=== PATIENT | male | born 1990 | race African-American/Black ===

== ENCOUNTER 2016-10-10 09:47 | Emergency (ER) | payer MEDICAID ==
[~2016-10-10] VITALS: Ht 175.3 cm; Wt 75.0 kg
[2016-10-10 09:48] VITALS: BP 140/75; PULSE 97; RESP 16; TEMP 99.1; O2SAT 98
--- NOTE | 2016-10-10 10:06 | PD ---
HPI Chief Complaint: Cold / Flu Symptoms Time Seen by Provider: 09:51 Travel History International Travel<30 days: No Contact w/Intl Traveler<30days: No Traveled to known affect area: No History of Present Illness HPI This is a 26 year old male who presents to the emergency department with shortness of breath and chest pain, constant, squeezing, 9/10, constant. Pt. reports that his pain was so bad that it woke him up from his sleep. Pt. was seen in the emergency department in [facility] one month ago with similar symptoms and he received IV fluids and felt better. Pt. denies any medical problems but his mother and grandmother both had heart attacks. He does smoke cigarettes and marijuana and denies any cocaine use. He denies any history of blood clots or having been on long trips. PFSH Past Medical History Hx Anticoagulant Therapy: No Cardiovascular Problems: No Chemotherapy: No Cerebrovascular Accident: No Diabetes: No Diminished Hearing: No Respiratory: No Past Surgical History Hysterectomy: No Social History Alcohol Use: No Tobacco Use: Yes Substance Use: Yes Allergies-Medications (Allergen,Severity, Reaction): Coded Allergies: No Known Allergies (Verified , 10/10/16) Reported Meds & Prescriptions Reported Meds & Active Scripts Active No Active Prescriptions or Reported Medications Review of Systems Except as stated in HPI: all other systems reviewed are Neg Physical Exam Narrative GENERAL:Well appearing, no acute distress SKIN: Focused skin assessment warm and dry. HEAD: Atraumatic. Normocephalic. EYES: Pupils equal and round. No injection or drainage. ENT: Moist mucous membranes NECK: Trachea midline. CARDIOVASCULAR: Regular rate and rhythm. 3/6 systolic ejection murmur RESPIRATORY: Clear to auscultation. Breath sounds equal bilaterally. GASTROINTESTINAL: Abdomen soft, non-tender, nondistended. MUSCULOSKELETAL: No obvious deformities. NEUROLOGICAL: Awake and alert. No obvious cranial nerve deficits. Moving all extremities. PSYCHIATRIC: Appropriate mood and affect; insight and judgment normal. Data Data Last Documented VS Vital Signs Date Time Temp Pulse Resp B/P Pulse Ox O2 Delivery O2 Flow Rate FiO2 10/10/16 09:58 98 10/10/16 09:48 99.1 97 16 140/75 Orders Electrocardiogram (10/10/16 ) Complete Blood Count With Diff (10/10/16 10:18) Comprehensive Metabolic Panel (10/10/16 10:18) Troponin I (10/10/16 10:18) Sodium Chlor 0.9% 1000 Ml Inj (Ns 1000 M (10/10/16 10:30) Chest, Single Ap (10/10/16 ) Labs Laboratory Tests Test 10/10/16 10:29 White Blood Count 9.2 TH/MM3 Red Blood Count 4.48 MIL/MM3 Hemoglobin 13.3 GM/DL Hematocrit 40.6 % Mean Corpuscular Volume 90.7 FL Mean Corpuscular Hemoglobin 29.8 PG Mean Corpuscular Hemoglobin 32.8 % Concent Red Cell Distribution Width 12.4 % Platelet Count 253 TH/MM3 Mean Platelet Volume 8.7 FL Neutrophils (%) (Auto) 73.3 % Lymphocytes (%) (Auto) 18.6 % Monocytes (%) (Auto) 7.5 % Eosinophils (%) (Auto) 0.0 % Basophils (%) (Auto) 0.6 % Neutrophils # (Auto) 6.8 TH/MM3 Lymphocytes # (Auto) 1.7 TH/MM3 Monocytes # (Auto) 0.7 TH/MM3 Eosinophils # (Auto) 0.0 TH/MM3 Basophils # (Auto) 0.1 TH/MM3 CBC Comment DIFF FINAL Differential Comment Sodium Level 141 MEQ/L Potassium Level 3.3 MEQ/L Chloride Level 106 MEQ/L Carbon Dioxide Level 28.5 MEQ/L Anion Gap 7 MEQ/L Blood Urea Nitrogen 10 MG/DL Creatinine 1.09 MG/DL Estimat Glomerular Filtration 99 ML/MIN Rate Random Glucose 89 MG/DL Calcium Level 9.0 MG/DL Total Bilirubin 0.9 MG/DL Aspartate Amino Transf 14 U/L (AST/SGOT) Alanine Aminotransferase 8 U/L (ALT/SGPT) Alkaline Phosphatase 73 U/L Troponin I LESS THAN 0.02 NG/ML Total Protein 7.5 GM/DL Albumin 4.0 GM/DL [facility] Medical Decision Making Medical Screen Exam Complete: Yes Emergency Medical Condition: Yes Interpretation(s) afebrile, mild tachycardia no leukocytosis mild hypokalemia troponin normal cxr reassuring ekg: nsr, lvh with high qrs amplitude at V4-V6 Differential Diagnosis Pneumomediastinum, anxiety, costochondritis, hypertrophic cardiomyopathy, acute coronary syndrome, myocardial bridging Narrative Course This is a 26-year-old male who presents to the emergency department with chest discomfort that's been going on since morning. He did smoke marijuana this morning. Patient has a family history of heart disease. EKG demonstrates left ventricular hypertrophy. He was placed on a monitor and an IV was established. Labs are reassuring with a normal troponin. Chest x-ray is unremarkable. I do appreciate a systolic murmur on the patient's physical exam. Given this and evidence of LVH on his EKG I think it's reasonable for him to follow up with a java developer consultant as an outpatient, possibly for an echo. A mandatory referral will be placed. Diagnosis Primary Impression: Chest pain Qualified Code: R07.9 - Chest pain, unspecified type Patient Instructions: General Instructions Additional Instructions: If you develop severe chest pain, shortness of breath, sweating, lightheadedness , dizziness or difficulty breathing return to the emergency department immediately. It is very important that you follow-up with a java developer consultant as you have a heart murmur in your EKG is abnormal. Med/Other Pt SpecificInfo: No Change to Meds Scripts No Active Prescriptions or Reported Meds Disposition: 01 DISCHARGE HOME Condition: Stable Carlota Carvajal MD October 10, 2016 10:06
[2016-10-10] MEDS ORDERED: SODIUM CHLOR 0.9% 1000 ML INJ 1,000 ML IV ONE (10:30)
--- NOTE | 2016-10-10 10:41 | RADRPT ---
EXAM DATE/TIME: 10/10/2016 10:27 [facility] COMPARISON: CHEST SINGLE AP, February 01, 2016, 18:25. INDICATIONS : Chest pain and tightness. MEDICAL HISTORY : None. SURGICAL HISTORY : None. ENCOUNTER: Initial ACUITY: 1 day PAIN SCORE: 8/10 LOCATION: Bilateral chest FINDINGS: A single view of the chest demonstrates the lungs to be symmetrically aerated without evidence of mas s, infiltrate or effusion. The cardiomediastinal contours are unremarkable. Osseous structures are intact. CONCLUSION: No acute disease. Carlos Nur MD on October 10, 2016 at 10:37 Board Certified Radiologist. This report was verified electronically.
[2016-10-10 10:57] LABS: AUTOMATED NEUTROPHIL # 6.8 TH/MM3 (1.8-7.7); BASOPHIL # 0.1 TH/MM3 (0-0.2); BASOPHIL % 0.6 % (0.0-2.0); HEMATOCRIT 40.6 % (39.0-51.0); HEMO FLAGS DIFF FINAL; LYMPH % 18.6 % (9.0-44.0); LYMPHOCYTE # 1.7 TH/MM3 (1.0-4.8); MEAN CELL VOLUME 90.7 FL (80.0-100.0); MEAN CORPUSCULAR HEMOGLOBIN 29.8 PG (27.0-34.0); MEAN CORPUSCULAR HGB CONC 32.8 % (32.0-36.0); MONO % 7.5 % (0.0-8.0); NEUT % 73.3 % (16.0-70.0); PLATELET COUNT 253 TH/MM3 (150-450); RED BLOOD COUNT 4.48 MIL/MM3 (4.50-5.90); RED CELL DISTRIBUTION WIDTH 12.4 % (11.6-17.2); WHITE BLOOD COUNT 9.2 TH/MM3 (4.0-11.0)
[2016-10-10 11:19] LABS: ALT (GPT) 8 U/L (12-78); ANION GAP 7 MEQ/L (5-15); AST (GOT) 14 U/L (15-37); BICARBONATE 28.5 MEQ/L (21.0-32.0); BLOOD UREA NITROGEN 10 MG/DL (7-18); CHLORIDE 106 MEQ/L (98-107); GLOMERULAR FILTRATION RATE 99 ML/MIN (>89); POTASSIUM 3.3 MEQ/L (3.5-5.1); SODIUM (NA) 141 MEQ/L (136-145)
[2016-10-10 11:23] LABS: ALKALINE PHOSPHATASE 73 U/L (45-117); TOTAL BILIRUBIN ADULT 0.9 MG/DL (0.2-1.0)
[2016-10-10] MEDS ORDERED: KETOROLAC TROMETHAMINE 30 MG/ML (IVP) VIAL IVP ONE (11:45)
--- NOTE | 2016-10-10 13:42 | EKG ---
Date Performed: 10/10/2016 Time Performed: 09:55:56 PTAGE: 26 years EKG: Sinus rhythm MODERATE VOLTAGE CRITERIA FOR LVH, CONSIDER NORMAL VARIANT Since previous tracing, no significant ch gus noted BORDERLINE ECG PREVIOUS TRACING : 02/01/2016 18.24 DOCTOR: Gina Szymanski Interpretating Date/Time 10/10/2016 13:42:08
== END 2016-10-10 12:33 | disposition home or self-care (01) ==
LOC: NEPD 09:47
DX: R07.9 Chest pain, unspecified (principal); R94.31 Abnormal electrocardiogram [ECG] [EKG]; Z72.0 Tobacco use
CPT/HCPCS: 71010; 80053; 84484; 85025; 93005; 96361; 96374; 99285; J1885; J7030